=== PATIENT | female | born 1990 | race Caucasian/White ===

== ENCOUNTER 2018-06-22 11:30 | Outpatient (CLI) | payer BC ==
[2018-06-22 13:29] LABS: Basophils % (A) 0 %; Eosinophils % (A) 1 %; HCT 33.1 % (34.0-46.0); HGB 10.9 gm/dL (11.4-16.0); Lymphocytes # (A) 1.4 k/uL (1.0-4.8); Lymphocytes % (A) 16 %; MCH 29.2 pg (25.0-35.0); MCHC 32.9 g/dL (31.0-37.0); MCV 88.8 fL (80.0-100.0); Mean Platelet Volume 7.3; Monocytes # (A) 0.5 k/uL (0-1.0); Monocytes % (A) 5 %; Neutrophils # (A) 6.7 k/uL (1.3-7.7); Neutrophils % (A) 77 %; Platelet Count 223 k/uL (150-450); RBC 3.73 m/uL (3.80-5.40); WBC 8.7 k/uL (3.8-10.6)
[2018-06-22 13:31] LABS: Appearance,Urine Clear (Clear); Bilirubin,Urine Negative (Negative); Blood,Urine Negative (Negative); Color,Urine Light Yellow; Glucose,Urine (UA) Negative (Negative); Ketones,Urine Negative (Negative); Leukocyte Esterase,Urine Negative (Negative); Nitrite,Urine Negative (Negative); PH, Urine 6.5 (5.0-8.0); Protein,Urine Negative (Negative); Specific Gravity,Urine 1.006 (1.001-1.035); Urobilinogen,Urine <2.0 mg/dL (<2.0)
[2018-06-22 13:52] LABS: ALT 28 U/L (9-52); AST 25 U/L (14-36); Blood Urea Nitrogen 7 mg/dL (7-17); LDH 655 U/L (313-618); Uric Acid 4.8 mg/dL (3.7-7.4)
[2018-06-22 16:51] VITALS: BP 130/83; PULSE 88; RESP 18; TEMP 98.4
--- NOTE | 2018-06-23 16:14 | P.MSEPDOC ---
Presenting Problems - Arrival Data Date of Arrival on Unit: 06/22/18 Time of Arrival on Unit: 11:30 Mode of Transport: Ambulatory - Complaint OB-Reason for Admission/Chief Complaint: Other Comment: r/o pih Medical History - Information : 2 Para: 1 Term: 1 : 0 Abortions: Spontaneous or Elective: 0 Number of Living Children: 1 - Gestational Age Gestational Age by LESLYE (wks/days): 37 Weeks and 2 Days Review of Systems - Review of Systems Constitutional: No problems Breast: No problems ENT: No problems Cardiovascular: No problems Respiratory: No problems Gastrointestinal: No problems Genitourinary: No problems Musculoskeletal: No problems Neurological: No problems Skin: No problems Vital Signs - Temperature Temperature: 98.4 F Temperature Source: Oral - Pulse Right Brachial Pulse Rate: 88 Pulse Assessment Method: Automatic Cuff - Respirations Respiratory Rate: 18 Oxygen Delivery Method: Room Air - Blood Pressure Right Arm Blood Pressure: 130/83 Blood Pressure Mean: 98 Blood Pressure Source: Automatic Cuff Medical Screen Scoring (Pre) - Cervical Exam Dilation: Exam Deferred Effacement: Exam Deferred Membranes: Intact - Uterine Contractions Frequency: N/A Duration: N/A Intensity: N/A - Maternal Vital Signs Maternal Temperature: N/A Signs of Preeclampsia: N/A Maternal Respirations: N/A - Pain Assessment Pain Scale Used: Numeric (1 - 10) Pain Intensity: 0 - Maternal Trauma Maternal Trauma: N/A - Assessment Baseline FHR: 135 Heart Rate - NICHD Category: Category I (Normal) = 0 NST: Reactive Position: N/A Station: N/A - Total Score Total Score (Pre): 0 - Level of Risk Level of Risk: Low (0-5) Physician Notification (Pre) - Physician Notified Spoke With: george New Order Received: Yes - Notification Comment Comment: if labs wnl may discharge. Medical Screen Scoring (Post) - Cervical Exam Dilation: Exam Deferred Effacement: Exam Deferred - Uterine Contractions Frequency: N/A Duration: N/A Intensity: N/A - Maternal Vital Signs Maternal Temperature: N/A Maternal Blood Pressure: N/A Signs of Preeclampsia: N/A Maternal Respirations: N/A - Pain Assessment Pain Scale Used: Numeric (1 - 10) Pain Intensity: 0 - Maternal Trauma Maternal Trauma: N/A - Assessment Heart Rate: 135 Heart Rate - NICHD Category: Category I (Normal) = 0 NST: Reactive Position: N/A Station: N/A - Total Score Total Score (Post): 0 - Post Treatment Level of Risk Post Treatment Level of Risk: Low (0-5) Physician Notification (Post) - Physician Notified Physician Notified Date: 06/22/18 Physician Notified Time: 12:40 Spoke With: george Saenz Order Received: Yes - Notification Comment Comment: discharge home. to keep next sched appt. Disposition - Disposition OB Disposition: Discharge to home Discharge Date: 06/22/18 Discharge Time: 14:10 I agree with the RN Medical Screening Exam: Yes Risk & Benefit of care provided described in d/c instruction: Yes Diagnosis: GESTATIONAL HTN W/O SIGNIFICANT PROTEINURIA, THIRD TRIMESTER
== END 2018-06-22 14:10 | disposition home or self-care (01) ==
LOC: FBPOP 11:30
PROVIDERS: ATTEND Obstetrics & Gynecology
DX: O13.3 Gestational [pregnancy-induced] hypertension without significant proteinuria, third trimester (principal); Z3A.37 37 weeks gestation of pregnancy
CPT/HCPCS: 59025; 81003; 82565; 83615; 84450; 84460; 84520; 84550; 85025; 99215

== ENCOUNTER 2018-06-26 00:15 | Observation (INO) | payer BC ==
[2018-06-26 01:12] LABS: Basophils % (A) 0 %; Eosinophils % (A) 0 %; HCT 32.3 % (34.0-46.0); HGB 10.7 gm/dL (11.4-16.0); Lymphocytes # (A) 1.1 k/uL (1.0-4.8); Lymphocytes % (A) 15 %; MCH 29.1 pg (25.0-35.0); MCHC 33.1 g/dL (31.0-37.0); MCV 87.8 fL (80.0-100.0); Mean Platelet Volume 7.2; Monocytes # (A) 0.4 k/uL (0-1.0); Monocytes % (A) 6 %; Neutrophils # (A) 5.5 k/uL (1.3-7.7); Neutrophils % (A) 76 %; Platelet Count 207 k/uL (150-450); RBC 3.68 m/uL (3.80-5.40); RDW 13.2 % (11.5-15.5); WBC 7.2 k/uL (3.8-10.6)
[2018-06-26 01:16] LABS: Appearance,Urine Clear (Clear); Bilirubin,Urine Negative (Negative); Blood,Urine Negative (Negative); Color,Urine Colorless; Glucose,Urine (UA) Negative (Negative); Ketones,Urine Negative (Negative); Leukocyte Esterase,Urine Negative (Negative); Nitrite,Urine Negative (Negative); PH, Urine 6.5 (5.0-8.0); Protein,Urine Negative (Negative); Specific Gravity,Urine 1.002 (1.001-1.035); Urobilinogen,Urine <2.0 mg/dL (<2.0)
[2018-06-26 01:26] LABS: ALT 30 U/L (9-52); AST 28 U/L (14-36); Blood Urea Nitrogen 9 mg/dL (7-17); LDH 415 U/L (313-618); Uric Acid 6.3 mg/dL (3.7-7.4)
[2018-06-26] MEDS ORDERED: ONDANSETRON 4 MG/2 ML VIAL IVP STA (01:40)
[2018-06-26 02:02] VITALS: BMI 31.6
[2018-06-26 02:25] VITALS: BP 131/83; PULSE 110; RESP 18; TEMP 96.7
--- NOTE | 2018-06-26 06:26 | P.HPOB ---
History of Present Illness H&P Date: 06/26/18 Chief Complaint: Diarrhea and epigastric pain This patient is a pleasant 27-year-old 2 para 1 female estimated date of confinement 07/12/2018 estimated gestational age 37-5/7 who was admitted last evening by Dr. Tavares for complaints of epigastric pain and some diarrhea. Patient most recently was in the office on Tuesday and had a diastolic blood pressure that was elevated to 86 and therefore I sent her to labor and delivery for preeclampsia evaluation. Blood pressures here were completely normal and all lab work was normal as well. Patient states that she began having some upper abdominal pain and some diarrhea yesterday contacted Dr. Tavares was admitted to the hospital for evaluation. Patient's blood pressures remain normal. Lab work remains normal. This morning patient is still having some upper abdominal pain and says she "just does not feel right". has been complicated by a isolated EIF and she was sent to maternal- medicine and had a negative evaluation. also's had a previous section secondary to breech presentation and has requested . Review of Systems Constitutional: Denies chills, Denies fever Gastrointestinal: Reports abdominal pain, Reports diarrhea Genitourinary: Reports Menstruation: Reports amenorrhea Past Medical History Past Medical History: No Reported History History of Any Multi-Drug Resistant Organisms: None Reported Past Surgical History: Section Past Anesthesia/Blood Transfusion Reactions: No Reported Reaction Past Psychological History: Bipolar, Depression Additional Psychological History / Comment(s): 0 meds for 10 yrs Smoking Status: Former smoker Past Alcohol Use History: None Reported Past Drug Use History: None Reported - Past Family History Mother Family Medical History: Hypertension Additional Family Medical History / Comment(s): hx of preeclamsia for mom Medications and Allergies Home Medications Medication Instructions Recorded Confirmed Type Pnv,Calcium 72/Iron/Folic Acid 1 each PO DAILY 06/22/18 06/26/18 History [ Plus Tablet] Allergies Allergy/AdvReac Type Severity Reaction Status Date / Time No Known Allergies Allergy Verified 06/26/18 00:33 Exam Vital Signs Temp Pulse Resp BP Pulse Ox 06/26/18 02:19 96.7 F L 110 H 18 131/83 97 Intake and Output 06/25/18 06/25/18 06/26/18 14:59 22:59 06:59 Other: Weight 83.688 kg - OBG Physical Exam Abdomen: bowel sounds normal, no diffuse tenderness, no bruit present, no guarding noted, no hepatomegaly, no splenomegaly, no mass Uterus: enlarged Results Result Diagrams: 06/26/18 00:55 06/26/18 00:55 Abnormal Lab Results - Last 24 Hours (Table) 06/26/18 06/26/18 06/26/18 Range/Units 00:55 00:55 00:55 RBC 3.68 L (3.80-5.40) m/uL Hgb 10.7 L (11.4-16.0) gm/dL Hct 32.3 L (34.0-46.0) % Creatinine 0.48 L (0.52-1.04) mg/dL U Random Total Protein 17 H (<12) mg/dL Assessment and Plan Assessment: This is a pleasant 27-year-old 2 para 1 female 37-4/7 weeks gestation who is admitted to labor and delivery for evaluation of upper abdominal pain. Patient also had concerns about hypertension, however all of her blood pressures have remained normal and all of her blood work has remained normal. Due to the patient's upper abdominal discomfort I'm going to get a complete obstetrical ultrasound and a drop her abdominal ultrasound. At this point it appears that her discomfort is related to the diarrhea perhaps a gastrointestinal processes. heart tones are reactive she is not in labor therefore there is no evidence of compromise at this time. Plan we'll continue hospitalization and observation. (1) Abdominal pain affecting Current Visit: Yes Status: Acute Code(s): O26.899 - OTH RELATED CONDITIONS, UNSPECIFIED TRIMESTER; R10.9 - UNSPECIFIED ABDOMINAL PAIN SNOMED Code(s): 083877522
[2018-06-26] MEDS ORDERED: ACETAMINOPHEN TAB 500 MG TAB PO STA (07:03)
--- NOTE | 2018-06-26 09:30 | US ---
EXAMINATION TYPE: US abdomen limited DATE OF EXAM: 06/26/2018 COMPARISON: NONE CLINICAL HISTORY: Epigastric pain. patient, 37 weeks, RUQ pain with 1 episode of vomiting EXAM MEASUREMENTS: Liver Length: 16.9 cm Gallbladder Wall: 0.2 cm CBD: 0.5 cm Right Kidney: 10.3 x 5.7 x 6.1 cm *Limited views due to enlarged UT displacing organs up within ribcage Pancreas: wnl Liver: wnl Gallbladder: wnl Evidence for sonographic [place]'s sign: no CBD: wnl Right Kidney: wnl IMPRESSION: No acute process
--- NOTE | 2018-06-26 09:45 | US ---
EXAMINATION TYPE: US OB >= 14 wk fetus DATE OF EXAM: 06/26/2018 COMPARISON: None CLINICAL HISTORY: Epigastric painRUQ pain TECHNIQUE: OBTA GESTATIONAL AGE / DATING Physician Established: (37 weeks/5 days) EDC: 07/12/2018 Dates by LMP: LMP unknown Dates by First Scan: No previous this is first scan Dates by Current Scan: (37 weeks/3 days) EDC: 07/14/2018 SURVEY IUP: Single PLACENTA: Anterior PREVIA: No Previa NOAH: 16.4 cm Normal CERVICAL LENGTH (transabdominal: norm > 3.0cm): 3.4 cm BIOMETRY PRESENTATION: Vertex LIE: Longitudinal BPD: 9.9 cm 40 weeks / 6 days HC: 34.1 cm 39 weeks / 2 days AC: 34.5 cm 38 weeks / 3 days FL: 6.9 cm 35 weeks / 3 days ESTIMATED WEIGHT IN GRAMS: 3405 grams ESTIMATED WEIGHT IN LBS/OZ: 7 lbs. 8 oz. WEIGHT PERCENTAGE BASED ON ESTABLISHED DATES: 71.3% HC/AC: 0.9 Normal FL/AC: 20.0 Normal HEART RATE: 117 bpm RHYTHM: Normal anatomy assessment was not requested and not performed. IMPRESSION: of 37 weeks 3 days and an EDC of 07/14/2018.
--- NOTE | 2018-06-29 06:25 | P.DS ---
Providers Date of admission: 06/26/18 01:51 Expected date of discharge: 06/26/18 Attending physician: Jeromy Tavares Primary care physician: Stated None - Discharge Diagnosis(es) (1) Abdominal pain affecting Status: Acute Hospital Course: Please see dictated H&P in this patient's admission. Brief summary this is a pleasant 27-year-old patient is admitted with some upper abdominal pain and diarrhea at term . Patient's evaluation was completely negative and later today feeling well she was felt be stable for discharge home follow up in the office in a couple days. Patient Condition at Discharge: Good Plan - Discharge Summary New Discharge Prescriptions: No Action Pnv,Calcium 72/Iron/Folic Acid [ Plus Tablet] 1 each PO DAILY Discharge Medication List Pnv,Calcium 72/Iron/Folic Acid [ Plus Tablet] 1 each PO DAILY 06/22/18 [ History] Follow up Appointment(s)/Referral(s): Matias Selby MD [STAFF PHYSICIAN] - 06/29/18 Discharge Disposition: HOME SELF-CARE
== END 2018-06-26 11:00 | disposition home or self-care (01) ==
LOC: FBPOP 00:15 → 4FBP 01:51
PROVIDERS: ADMIT Obstetrics & Gynecology; ATTEND Obstetrics & Gynecology
DX: O26.893 Other specified pregnancy related conditions, third trimester (principal); R10.13 Epigastric pain; Z3A.37 37 weeks gestation of pregnancy; R10.11 Right upper quadrant pain; R19.7 Diarrhea, unspecified; Z87.891 Personal history of nicotine dependence; Z82.49 Family history of ischemic heart disease and other diseases of the circulatory system; O34.219 Maternal care for unspecified type scar from previous cesarean delivery
CPT/HCPCS: 59025; 99215; 82570; 84156; 82565; 83615; 84450; 84460; 84520; 84550; 85025; 81003; 76705; 76805; G0378

== ENCOUNTER 2018-07-10 05:50 | Inpatient (IN) | payer BC ==
[2018-07-10] MEDS ORDERED: LIDOCAINE 0.5% (PF) 5 MG/ML (50 ML SDV) SQ PRN (05:58)
[2018-07-10] MEDS ORDERED: OXYTOCIN 10 UNIT/ML 1 ML VIAL IM PRN (05:58)
[2018-07-10] MEDS ORDERED: TERBUTALINE 1 MG/ML VIAL SQ PRN (05:58)
[2018-07-10] MEDS ORDERED: AMPICILLIN 2,000 MG in SODIUM CHLORIDE 0.9% 100 ML IVPB STA (05:58)
[2018-07-10] MEDS ORDERED: CARBOPROST TROMETHAMINE 250 MCG/ML 1 ML AMP IM PRN (05:58)
[2018-07-10] MEDS ORDERED: OXYTOCIN 30 UNITS/500 ML NS 30 UNIT in SALINE 1 500ML.BAG IV SCH (05:58)
[2018-07-10] MEDS ORDERED: METHYLERGONOVINE 0.2 MG/ML 1 ML AMP IM PRN (05:58)
[2018-07-10 06:10] VITALS: BMI 31.4
[2018-07-10] MEDS: LACTATED RINGERS 1,000 ML IV SCH ×2 (06:24→21:34)
--- NOTE | 2018-07-10 06:26 | P.HPOB ---
History of Present Illness H&P Date: 07/10/18 Chief Complaint: Requested induction of labor () This patient is a pleasant 27-year-old 2 para 1 female estimated date of confinement 07/12/2018 estimated gestational age 39-5/7 weeks who presents to labor and delivery for requested induction of labor. Patient's had a previous section for breech. That time apparently she came in completely dilated and did have a section due to breech presentation. Patient has requested a trial of this and I feel this is appropriate. Patient's care is complicated by an 8 which was evaluated by maternal medicine in negative. Patient was also briefly hospitalized due to concern for elevated blood pressure although she has never had any elevated blood pressures after prolonged observation. Patient is uncomfortable at this time is requesting induction of labor. Review of Systems Gastrointestinal: Reports heartburn Genitourinary: Reports Menstruation: Reports amenorrhea Past Medical History Past Medical History: No Reported History History of Any Multi-Drug Resistant Organisms: None Reported Past Surgical History: Section Past Anesthesia/Blood Transfusion Reactions: No Reported Reaction Past Psychological History: Bipolar, Depression Additional Psychological History / Comment(s): 0 meds for 10 yrs Smoking Status: Former smoker Past Alcohol Use History: None Reported Past Drug Use History: None Reported - Past Family History Mother Family Medical History: Hypertension Additional Family Medical History / Comment(s): hx of preeclamsia for mom Medications and Allergies Home Medications Medication Instructions Recorded Confirmed Type Pnv,Calcium 72/Iron/Folic Acid 1 each PO DAILY 06/22/18 07/10/18 History [ Plus Tablet] Allergies Allergy/AdvReac Type Severity Reaction Status Date / Time No Known Allergies Allergy Verified 06/26/18 00:33 Exam Vital Signs Temp Pulse Resp BP Pulse Ox 07/10/18 06:05 97.3 F L 111 H 16 133/76 98 Intake and Output 07/09/18 07/09/18 07/10/18 14:59 22:59 06:59 Other: Weight 83.007 kg - OBG Physical Exam Abdomen: bowel sounds normal, no diffuse tenderness, no bruit present, no guarding noted, no hepatomegaly, no splenomegaly, no mass Vulva: both: normal Vagina: normal moisture, no discharge Cervix: no lesion (Cervix is 2-3 cm 50% effaced -2 station.), no discharge Uterus: enlarged (Fundal height 38 cm.) Results blood work shows she is A positive, rubella immune, RPR nonreactive, hepatitis B negative, group B strep was negative (however she has a history of positive group B strep with her previous ), Glucola was normal, level III ultrasound was normal, quad screen was negative. Assessment and Plan Assessment: This is a pleasant 27-year-old 2 para 1 female 39-5/7 weeks gestation who is presenting for requested trial of vaginal after section. Patient is requesting induction secondary to discomfort. Patient and I discussed in detail the benefits and risk of . Patient also has a history of positive strep with her previous . Plan is induction of labor and anticipate vaginal delivery. We'll also give her IV antibiotics prophylactically. (1) 39 weeks gestation of Current Visit: Yes Status: Acute Code(s): Z3A.39 - 39 WEEKS GESTATION OF SNOMED Code(s): 09048091 (2) Previous delivery affecting Current Visit: Yes Status: Acute Code(s): O34.219 - MATERNAL CARE FOR UNSP TYPE SCAR FROM PREVIOUS DEL SNOMED Code(s): 438444113
[2018-07-10 06:39] LABS: Basophils % (A) 0 %; Eosinophils # (A) 0.1 k/uL (0-0.7); Eosinophils % (A) 1 %; HCT 33.4 % (34.0-46.0); HGB 10.8 gm/dL (11.4-16.0); Lymphocytes % (A) 25 %; MCH 28.3 pg (25.0-35.0); MCHC 32.5 g/dL (31.0-37.0); MCV 87.2 fL (80.0-100.0); Mean Platelet Volume 7.3; Monocytes # (A) 0.6 k/uL (0-1.0); Monocytes % (A) 7 %; Neutrophils # (A) 5.4 k/uL (1.3-7.7); Neutrophils % (A) 66 %; Platelet Count 252 k/uL (150-450); RBC 3.83 m/uL (3.80-5.40); RDW 13.3 % (11.5-15.5); WBC 8.2 k/uL (3.8-10.6)
[2018-07-10] MEDS: AMPICILLIN 1,000 MG in SODIUM CHLORIDE 0.9% 50 ML IVPB SCH ×2 (10:39→21:34)
[2018-07-10] MEDS ORDERED: BUTORPHANOL 1 MG/ML 1 ML VIAL IV PRN (10:45)
[2018-07-10] MEDS ORDERED: ROPIVACAINE 5MG/ML 20ML VIAL ONE (12:16)
[2018-07-10] MEDS ORDERED: SODIUM CHLORIDE 0.9% 100 ML BAG ONE (12:16)
[2018-07-10] MEDS ORDERED: fentaNYL (PF) 50 MCG/ML 5 ML AMP ONE (12:16)
[2018-07-10] MEDS ORDERED: ROPIVACAINE 100 MG, fentaNYL (PF) 200 MCG in SODIUM CHLORIDE 0.9% 76 ML EPIDURAL ONE (12:36)
[2018-07-10] MEDS ORDERED: BISACODYL 10 MG SUPP RECTAL PRN (14:15)
[2018-07-10] MEDS ORDERED: WITCH HAZEL 1 EACH MED..PAD TOPICAL PRN (14:15)
[2018-07-10] MEDS ORDERED: SIMETHICONE 80 MG CHEWABLE PO PRN (14:15)
[2018-07-10] MEDS ORDERED: diphenhydrAMINE 25 MG CAP PO PRN (14:15)
[2018-07-10] MEDS ORDERED: BENZOCAINE/MENTHOL SPRAY 1 GM/SPRAY AEROSOL TOPICAL PRN (14:15)
[2018-07-10] MEDS ORDERED: HYDROCORTISONE 2.5% RECTAL CREAM 30 GM TUBE RECTAL PRN (14:15)
[2018-07-10] MEDS ORDERED: LANOLIN CREAM 5 GM TUBE TOPICAL PRN (14:15)
[2018-07-10] MEDS ORDERED: diphenhydrAMINE 50 MG/ML 1 ML VIAL IVP PRN (14:15)
[2018-07-10] MEDS ORDERED: ZOLPIDEM 5 MG TAB PO PRN (14:15)
[2018-07-10] MEDS ORDERED: OXYTOCIN 20 UNITS/1000 ML NS 1,000 ML IV SCH (14:15)
[2018-07-10] MEDS ORDERED: ACETAMINOPHEN TAB 325 MG TAB PO PRN (14:15)
[2018-07-10] MEDS: IBUPROFEN 600 MG TAB PO PRN ×2 (14:52→22:36)
--- NOTE | 2018-07-10 17:12 | P.PROBDLV ---
Vaginal Delivery Note - . Vaginal Delivery Note: normal vaginal delivery () viable male Apgars 8 and 9 at 1345 hrs. Please see dictated H&P for intimate details of this patient's admission. Brief summary this is a pleasant 27-year-old 2 para 1 female 39-5/7 weeks gestation who is admitted to labor and delivery for requested induction of labor and trial of . Patient is artificial rupture membranes for clear fluid. Labor is induced with Pitocin per protocol. A she is given antibiotics for history of positive strep with previous . Labor progresses and she gets an epidural for pain control. Patient then quickly gets to complete pushes the head to the perineum. Posterior perineum was then supported we have controlled delivery of infant's head over the intact perineum. Mouth and nares are bulb suctioned. There is no evidence of a nuchal cord. With gentle downward traction we have delivery the anterior and posterior shoulder and rest this 's body. This is a vigorous viable male Apgars are 8 and 9 delivery time is 1345 hrs. This is laid on the mother's abdomen and after the umbilical cord is done pulsating is doubly clamped and then cut. It appears to be trivascular. Placenta spontaneously delivered intact. Estimated blood loss is 150 mL. Inspection of the perineum shows a second- degree laceration and bilateral periurethral lacerations. Second-degree laceration is somewhat jagged but it is repaired with the usual fashion using a 3-0 Vicryl in excellent reapproximation is noted. The right periurethral laceration requires 2 sutures in good reapproximation is noted as well. All counts are correct 3. There are no complications. and mother are stable in delivery room.
[2018-07-10] MEDS: SENNOSIDES-DOCUSATE SODIUM 1 EACH TAB PO SCH (21:27)
--- NOTE | 2018-07-11 05:53 | P.PNOBGVD ---
Subjective - Subjective Patient reports: Reports appetite normal, Reports voiding normally, Reports pain well controlled, Reports ambulating normally : doing well Objective - Latest Vital Signs Latest vital signs: Vital Signs Temp Pulse Resp BP Pulse Ox 07/11/18 00:00 98 F 85 15 111/60 07/10/18 20:00 98 F 84 15 111/75 07/10/18 16:18 68 17 125/72 07/10/18 15:45 98.4 F 69 17 116/68 07/10/18 15:15 80 16 112/67 07/10/18 15:00 67 17 116/67 07/10/18 14:45 75 16 113/63 07/10/18 14:30 83 17 111/53 07/10/18 14:15 98.0 F 103 H 17 117/57 07/10/18 06:05 97.3 F L 111 H 16 133/76 98 Intake and Output 07/10/18 07/10/18 07/11/18 14:59 22:59 06:59 Other: # Voids 1 - Exam Lungs: bilateral: normal Chest: Normal S1, Normal S2 Extremities: Present: normal Abdomen: Present: normal appearance, soft Uterus: Present: normal, firm - Labs Labs: Abnormal Lab Results - Last 24 Hours (Table) 07/10/18 Range/Units 06:07 Hgb 10.8 L (11.4-16.0) gm/dL Hct 33.4 L (34.0-46.0) % Assessment and Plan Assessment: Post day #1. Patient is resting without complaints and wishes to go home. Vital signs are stable and she is afebrile. Uterus is firm nontender and she is having normal lochia. My impression this is a normal course. Plan is to continue routine care discharge home later today. (1) 39 weeks gestation of Current Visit: Yes Status: Acute Code(s): Z3A.39 - 39 WEEKS GESTATION OF SNOMED Code(s): 03507437 (2) Previous delivery affecting Current Visit: Yes Status: Acute Code(s): O34.219 - MATERNAL CARE FOR UNSP TYPE SCAR FROM PREVIOUS DEL SNOMED Code(s): 401356522
--- NOTE | 2018-07-11 05:56 | P.DS ---
Providers Date of admission: 07/10/18 05:50 Expected date of discharge: 07/11/18 Attending physician: Matias Selby Primary care physician: Stated None - Discharge Diagnosis(es) (1) 39 weeks gestation of Current Visit: Yes Status: Acute (2) Previous delivery affecting Current Visit: Yes Status: Acute Hospital Course: Please see dictated H&P for intimate details of this patient's admission. Brief summary is a pleasant 27-year-old 2 para 1 female 39-5/7 weeks gestation admitted to labor and delivery for requested vaginal after section. Patient is admitted has uncomplicated induction of labor goes on have a vaginal delivery viable male infant. Please see dictated delivery note. day #1 patient's felt to be stable for discharge home follow up with me in 6 weeks. Procedures: Vaginal after section Patient Condition at Discharge: Good Plan - Discharge Summary New Discharge Prescriptions: New Ibuprofen [Motrin] 600 mg PO Q6HR PRN #40 tab PRN Reason: Mild Pain Or Fever >= 100.5 No Action Pnv,Calcium 72/Iron/Folic Acid [ Plus Tablet] 1 each PO DAILY Discharge Medication List Pnv,Calcium 72/Iron/Folic Acid [ Plus Tablet] 1 each PO DAILY 06/22/18 [ History] Ibuprofen [Motrin] 600 mg PO Q6HR PRN #40 tab 07/11/18 [Rx] Follow up Appointment(s)/Referral(s): Matias Selby MD [STAFF PHYSICIAN] - 08/22/18 10:15 am Patient Instructions/Handouts: Vaginal Delivery (DC) Activity/Diet/Wound Care/Special Instructions: No intercourse or anything per vagina for 6 weeks. Please call if any fever, chills, excessive vaginal bleeding, and/or abdominal pain. Discharge Disposition: HOME SELF-CARE
[2018-07-11] MEDS: IBUPROFEN 600 MG TAB PO PRN (07:52)
[2018-07-11] MEDS: SENNOSIDES-DOCUSATE SODIUM 1 EACH TAB PO SCH (07:53)
[2018-07-11 08:00] VITALS: BP 120/68; PULSE 86; RESP 14; TEMP 97
== END 2018-07-11 14:40 | disposition home or self-care (01) | DRG 807 ==
LOC: 4FBP 05:50
PROVIDERS: ADMIT Obstetrics & Gynecology; ATTEND Obstetrics & Gynecology
PROC: 10E0XZZ Delivery of Products of Conception, External Approach (ICD-10-PCS; principal; 2018-07-10)
PROC: 0KQM0ZZ Repair Perineum Muscle, Open Approach (ICD-10-PCS; 2018-07-10)
PROC: 0UQMXZZ Repair Vulva, External Approach (ICD-10-PCS; 2018-07-10)
PROC: 3E033VJ Introduction of Other Hormone into Peripheral Vein, Percutaneous Approach (ICD-10-PCS; 2018-07-10)
PROC: 10907ZC Drainage of Amniotic Fluid, Therapeutic from Products of Conception, Via Natural or Artificial Opening (ICD-10-PCS; 2018-07-10)
PROC: 00HU33Z Insertion of Infusion Device into Spinal Canal, Percutaneous Approach (ICD-10-PCS; 2018-07-10)
PROC: 3E0R3BZ Introduction of Anesthetic Agent into Spinal Canal, Percutaneous Approach (ICD-10-PCS; 2018-07-10)
DX: O34.211 Maternal care for low transverse scar from previous cesarean delivery (principal); Z37.0 Single live birth; O70.1 Second degree perineal laceration during delivery; O71.82 Other specified trauma to perineum and vulva; Z3A.39 39 weeks gestation of pregnancy; Z79.899 Other long term (current) drug therapy; Z87.891 Personal history of nicotine dependence; Z86.59 Personal history of other mental and behavioral disorders; Z82.49 Family history of ischemic heart disease and other diseases of the circulatory system
CPT/HCPCS: 85025; 86850; 86900; 86901

== ENCOUNTER 2021-03-06 09:47 | Emergency (ER) | payer BC ==
[2021-03-06] MEDS ORDERED: KETOROLAC 15 MG/ML 1 ML VIAL IVP STA (11:30)
[2021-03-06 11:51] LABS: Basophils % (A) 1 %; Eosinophils # (A) 0.1 k/uL (0-0.7); Eosinophils % (A) 2 %; HCT 34.8 % (34.0-46.0); HGB 10.9 gm/dL (11.4-16.0); Lymphocytes % (A) 30 %; MCHC 31.5 g/dL (31.0-37.0); MCV 85.8 fL (80.0-100.0); Mean Platelet Volume 6.9; Monocytes # (A) 0.4 k/uL (0-1.0); Monocytes % (A) 6 %; Neutrophils # (A) 3.9 k/uL (1.3-7.7); Neutrophils % (A) 60 %; Platelet Count 329 k/uL (150-450); RBC 4.05 m/uL (3.80-5.40); RDW 15.2 % (11.5-15.5); WBC 6.6 k/uL (3.8-10.6)
[2021-03-06 12:01] LABS: ALT 23 U/L (4-34); AST 30 U/L (14-36); African American GFR (CKD) >90 (>60 ml/min/1.73 sqM); Albumin 3.7 g/dL (3.5-5.0); Alkaline Phosphatase 55 U/L (38-126); Anion Gap 7 mmol/L; Blood Urea Nitrogen 10 mg/dL (7-17); Calcium 8.9 mg/dL (8.4-10.2); Carbon Dioxide 23 mmol/L (22-30); Chloride 107 mmol/L (98-107); Glucose 91 mg/dL (74-99); Non-African American GFR(CKD) >90 (>60 ml/min/1.73 sqM); Potassium 4.1 mmol/L (3.5-5.1); Sodium 137 mmol/L (137-145); Total Bilirubin 0.3 mg/dL (0.2-1.3); Total Protein 6.3 g/dL (6.3-8.2)
[2021-03-06 12:11] VITALS: RESP 18
--- NOTE | 2021-03-06 12:13 | XR ---
EXAMINATION TYPE: XR chest 2V DATE OF EXAM: 03/06/2021 COMPARISON: None HISTORY: 30-year-old female with chest pain TECHNIQUE: PA and lateral views FINDINGS: The cardiomediastinal silhouette, aorta, and pulmonary vasculature are within normal limits. Right-si ded nipple shadow. Lungs and pleural spaces are clear. IMPRESSION: No acute cardiopulmonary process.
--- NOTE | 2021-03-06 12:24 | ED ---
Chest Pain HPI - General Chief Complaint: Chest Pain Stated Complaint: Chest Pain Time Seen by Provider: 03/06/21 11:08 Source: patient, RN notes reviewed Mode of arrival: ambulatory Limitations: no limitations - History of Present Illness Initial Comments: Patient is a 30-year-old female presenting to the emergency Department with complaints of chest pain when she woke up this morning. She states she woke up and turned over, then felt a sharp pain in the middle of her chest. She states when she lays flat on her back it also hurts, hurts to the touch. When she stretches her arms out to the sides and also plays in the area and makes it hurt. She denies any cough, no shortness of breath, no abdominal pain, no nausea or vomiting. She denies any fevers or chills. She states her daughter was recently tested positive for RSV. She's had a little bit of a stuffy nose over the past 1-2 days but no other symptoms. She denies any heart disease in the past, no blood clots in the past. No recent travel. She denies being secondary to IUD. Patient has no further complaints at this time. Upon arrival to the ER, her vitals are stable. - Related Data Home Medications Medication Instructions Recorded Confirmed No Known Home Medications 03/06/21 03/06/21 Allergies Allergy/AdvReac Type Severity Reaction Status Date / Time No Known Allergies Allergy Verified 03/06/21 11:53 Review of Systems ROS Statement: Those systems with pertinent positive or pertinent negative responses have been documented in the HPI. ROS Other: All systems not noted in ROS Statement are negative. EKG Findings - EKG Comments: EKG Findings:: Normal sinus rhythm, normal ECG, no signs of acute process. Ventricular rate 86, NC interval 140, QT 388. Past Medical History Past Medical History: No Reported History History of Any Multi-Drug Resistant Organisms: None Reported Past Surgical History: Section Past Anesthesia/Blood Transfusion Reactions: No Reported Reaction Past Psychological History: Bipolar, Depression Smoking Status: Current every day smoker Past Alcohol Use History: Occasional Past Drug Use History: None Reported - Past Family History Mother Family Medical History: Hypertension Additional Family Medical History / Comment(s): hx of preeclamsia for mom General Exam - General Exam Comments Initial Comments: GENERAL: Patient is well-developed and well-nourished. Patient is nontoxic and in no acute distress. HEAD: Atraumatic, normocephalic. EYES: Pupils equal round and reactive to light, extraocular movements intact, sclera anicteric, conjunctiva are normal. Eyelids were unremarkable. ENT: Nares patent, oropharynx clear without exudates. Moist mucous membranes. NECK: Normal range of motion, supple without lymphadenopathy or JVD. LUNGS: Unlabored respirations. Breath sounds clear to auscultation bilaterally and equal. No wheezes rales or rhonchi. HEART: Regular rate and rhythm without murmurs, rubs or gallops. ABDOMEN: Soft, nontender, normoactive bowel sounds. No guarding, no rebound. No masses appreciated. : Deferred MUSCULOSKELETAL: Normal extremities with adequate strength and normal range of motion, no pitting or edema. No clubbing or cyanosis. She does have pain with palpation of the sternum in costochondryles, pain with arm movement. NEUROLOGICAL: Patient is alert and oriented x 3. SKIN: Warm, Dry, normal turgor, no rashes or lesions noted. Limitations: no limitations Course Vital Signs 03/06/21 03/06/21 03/06/21 09:52 12:00 13:00 Temperature 99 F Pulse Rate 78 Respiratory 20 18 18 Rate Blood Pressure 130/85 O2 Sat by Pulse 100 Oximetry Chest Pain [facility] Patient is a 30-year-old female here with chest pain after she rolled over this morning. She admits pain with palpation, increases with arm movement, deep inhalation. No injuries or trauma. Her son recently tested positive for RSV, she has little bit of a stuffy nose. Rest of exam is unremarkable, vitals are stable. Chest x-ray shows no acute process. EKG is reading normal sinus rhythm. Labs are unremarkable including normal troponin, normal d-dimer. I discussed with patient that her symptoms are most likely related to costochondritis secondary to viral syndrome. Recommended continuing with anti- inflammatory such as Motrin or Aleve. She is agreeable to this. Return p arameters were discussed with her and she verbalized understanding. She will follow up with her PCP. Case discussed with Dr. Guerrero. Disposition Clinical Impression: Atypical chest pain, Costochondritis Disposition: HOME SELF-CARE Condition: Stable Instructions (If sedation given, give patient instructions): Costochondritis (ED) Additional Instructions: Please return to the Emergency Department if symptoms worsen or any other concerns. Recommend anti-inflammatory such as Motrin or Aleve for discomfort. May try heat and/or ice to the areas. Follow up with your primary care as needed. Is patient prescribed a controlled substance at d/c from ED?: No Referrals: None,Stated [Primary Care Provider] - 1-2 days Time of Disposition: 13:34
[2021-03-06 14:22] VITALS: BP 107/81; PULSE 72; TEMP 98.1
== END 2021-03-06 13:52 | disposition home or self-care (01) ==
LOC: EC 09:47
DX: M94.0 Chondrocostal junction syndrome [Tietze] (principal); F17.200 Nicotine dependence, unspecified, uncomplicated
CPT/HCPCS: 36415; 93005; 85379; 80053; 84484; 85025; 71046; 99284; 96374; J1885

== ENCOUNTER 2023-05-17 06:00 | Emergency (ER) | payer BC ==
[2023-05-17] MEDS ORDERED: ACETAMINOPHEN TAB 325 MG TAB PO STA (06:16)
[2023-05-17 06:17] VITALS: RESP 18
--- NOTE | 2023-05-17 07:26 | XR ---
EXAMINATION TYPE: XR knee complete RT DATE OF EXAM: 05/17/2023 COMPARISON: NONE HISTORY: 32 year-old female right knee pain after fall TECHNIQUE: 3 views FINDINGS: Prepatellar soft tissue swelling. Extensor mechanism appears intact. No significant joint e ffusion. No acute fracture, subluxation, or dislocation. IMPRESSION: Prepatellar soft tissue swelling could reflect contusion or prepatellar bursitis. No underlying acute osseous abnormality is seen.
--- NOTE | 2023-05-17 07:51 | ED ---
General Adult HPI - General Chief complaint: Fall Stated complaint: Fall, right knee injury Time Seen by Provider: 05/17/23 06:10 Source: patient, RN notes reviewed Mode of arrival: wheelchair Limitations: no limitations - History of Present Illness Initial comments: 32-year-old female with no significant past medical history presents to the emergency department with a chief complaint of right knee pain. Patient reports that she fell down stairs last night. She reports worsening pain and swelling to her right knee. She denies hitting her head, loss of consciousness, anticoagulant use. She denies numbness, tingling, weakness in extremities. Denies any pain distally to the knee. - Related Data Home Medications Medication Instructions Recorded Confirmed No Known Home Medications 03/06/21 03/06/21 Allergies Allergy/AdvReac Type Severity Reaction Status Date / Time No Known Allergies Allergy Verified 05/17/23 06:09 Review of Systems ROS Statement: Those systems with pertinent positive or pertinent negative responses have been documented in the HPI. ROS Other: All systems not noted in ROS Statement are negative. Past Medical History Past Medical History: No Reported History History of Any Multi-Drug Resistant Organisms: None Reported Past Surgical History: Section Past Anesthesia/Blood Transfusion Reactions: No Reported Reaction Past Psychological History: Bipolar, Depression Smoking Status: Current some day smoker Past Alcohol Use History: Occasional Past Drug Use History: None Reported - Past Family History Mother Family Medical History: Hypertension Additional Family Medical History / Comment(s): hx of preeclamsia for mom General Exam - General Exam Comments Initial Comments: General: Alert, in no acute distress Head: atraumatic normocephalic. Eyes PERRL, EOMI intact, mucous membranes moist Respiratory: Lungs clear to auscultation bilaterally Cardiovascular: Heart regular rhythm Abdominal: Soft without guarding or rebound Extremities: Normal inspection with full range of motion and normal capillary refill, right knee with generalized edema and tenderness. Limited range of motion secondary to pain. small abrasion without active bleeding. No Crepitus. No valgus or varus laxity. Homans sign negative. Neuroogic: alert and oriented 3, CN II-XII intact, able to ambulate with steady gait Skin: warm dry and intact with normal color Limitations: no limitations Course Vital Signs 05/17/23 06:05 Temperature 98 F Pulse Rate 90 Respiratory 18 Rate Blood Pressure 125/78 O2 Sat by Pulse 100 Oximetry - Reevaluation(s) Reevaluation #1: 05/17/23 08:11 Reevaluated and updated on results. She is agreeable with the plan for discharge home. Medical Decision Making - Medical Decision Making Was pt. sent in by a medical professional or institution ([facility], GLO[employer] RECRUITER, urgent care, hospital, or senior care...) When possible be specific @ -[No] Did you speak to anyone other than the patient for history (EMS, parent, family, police, friend...)? What history was obtained from this source @ -[No] Did you review nursing and triage notes (agree or disagree)? Why? @ -[I reviewed and agree with nursing and triage notes] Were old charts reviewed (outside hosp., previous admission, EMS record, old EKG, old radiological studies, urgent care reports/EKG's, senior care records)? Report findings @ -[No old charts were reviewed] Differential Diagnosis (chest pain, altered mental status, abdominal pain women, abdominal pain men, vaginal bleeding, weakness, fever, dyspnea, syncope, headache, dizziness, GI bleed, back pain, seizure, CVA, palpatations, mental health, musculoskeletal)? @ -[not applicable] EKG interpreted by me (3pts min.). @ -[As above] X-rays interpreted by me (1pt min.). @ X-ray of right knee does not reveal any evidence of dislocation or fracture. There is mild prepatellar edema CT interpreted by me (1pt min.). @ -[None done] U/S interpreted by me (1pt. min.). @ -[None done] What testing was considered but not performed or refused? (CT, X-rays, U/S, labs)? Why? @ -[None] What meds were considered but not given or refused? Why? @ -[None] Did you discuss the management of the patient with other professionals (professionals i.e. [facility], GLOBAL RECRUITER, lab, RT, psych nurse, aids social worker, bicycle designer, teacher, resident medical officer, window caser)? Give summary @ -[No] Was smoking cessation discussed for >3mins.? @ -[No] Was critical care preformed (if so, how long)? @ -[No] Were there social determinants of health that impacted care today? How? (Homelessness, low income, unemployed, alcoholism, drug addiction, transportation, low edu. Level, literacy, decrease access to med. care, assisted, rehab)? @ -[No] Was there de-escalation of care discussed even if they declined (Discuss DNR or withdrawal of care, Hospice)? DNR status @ -[No] What co-morbidities impacted this encounter? (DM, HTN, Smoking, COPD, CAD, Cancer, CVA, ARF, Chemo, Hep., AIDS, mental health diagnosis, sleep apnea, morbid obesity)? @ -[None] Was patient admitted / discharged? Hospital course, mention meds given and route, prescriptions, significant lab abnormalities, going to OR and other pertinent info. @ -Discharged. This is a 32-year-old female who presents the emergency department with knee pain. Patient has been physical exam performed. Physical exam reveals generalized swelling of the right knee. Limited range of motion secondary to pain. No valgus or varus laxity. No crepitus noted. Patient had x-rays which were negative. Rajinder wrap was applied and crutches were provided. Patient provided prescription for Motrin. Return precautions discussed at length. Recommend close follow-up with orthopedics in 1-2 days. Discharged in stable condition. Case is discussed with Dr. alejandre, ED attending who agrees with plan of care Undiagnosed new problem with uncertain prognosis? @ -[No] Drug Therapy requiring intensive monitoring for toxicity (Heparin, Nitro, Insulin, Cardizem)? @ -[No] Were any procedures done? @ -[No] Diagnosis/symptom? @ -Right Knee Pain Acute, or Chronic, or Acute on Chronic? @ -Acute Uncomplicated (without systemic symptoms) or Complicated (systemic symptoms)? @ -Uncomplicated Side effects of treatment? @ -[No] Exacerbation, Progression, or Severe Exacerbation? @ -[No] Poses a threat to life or bodily function? How? (Chest pain, [place], [place], pneumonia, PE, COPD, DKA, ARF, appy, cholecystitis, CVA, Diverticulitis, Homicidal, Suicidal, threat to staff... and all critical care pts) @ -Low likleihood Disposition Clinical Impression: Fall, Right knee pain Disposition: HOME SELF-CARE Condition: Stable Instructions (If sedation given, give patient instructions): Swollen Knee Joint (ED), Knee Pain (ED) Additional Instructions: Please elevate when able Please take Tylenol or Motrin for pain Please return to the nearest emergency department if worsening pain or swelling Is patient prescribed a controlled substance at d/c from ED?: No Referrals: Thee Underwood DO [Primary Care Provider] - 1-2 days Daniel Tavarez DO [Doctor of Osteopathic Medicine] - 1-2 days Time of Disposition: 07:50
[2023-05-17 08:45] VITALS: BP 126/78; PULSE 82; TEMP 97.9
== END 2023-05-17 08:21 | disposition home or self-care (01) ==
LOC: EC 06:00
DX: M25.561 Pain in right knee (principal); R60.0 Localized edema; F17.200 Nicotine dependence, unspecified, uncomplicated; W10.9XXA Fall (on) (from) unspecified stairs and steps, initial encounter
CPT/HCPCS: 99284

== ENCOUNTER 2024-06-24 23:54 | Inpatient (IN) | payer BC, OTHER ==
--- NOTE | 2024-06-25 00:29 | ED ---
General Adult HPI - General Chief complaint: Psychiatric Symptoms Stated complaint: Mental health Time Seen by Provider: 06/25/24 00:03 Source: patient, RN notes reviewed, old records reviewed Mode of arrival: ambulatory Limitations: no limitations - History of Present Illness Initial comments: 33-year-old female presenting with depression, suicidal thoughts. Patient states her symptoms have been persistent over the past several months but significantly worsened. She had prior suicide attempt. She denies current suicide attempt. Denies physical complaint. - Related Data Home Medications Medication Instructions Recorded Confirmed No Known Home Medications 03/06/21 03/06/21 Allergies Allergy/AdvReac Type Severity Reaction Status Date / Time No Known Allergies Allergy Verified 05/17/23 06:09 Review of Systems ROS Statement: Those systems with pertinent positive or pertinent negative responses have been documented in the HPI. ROS Other: All systems not noted in ROS Statement are negative. Past Medical History Past Medical History: No Reported History History of Any Multi-Drug Resistant Organisms: None Reported Date of last positivie culture/infection: 2023 MDRO Source:: unknown which one- knee Past Surgical History: Section Past Anesthesia/Blood Transfusion Reactions: No Reported Reaction Past Psychological History: Bipolar, Depression Smoking Status: Current some day smoker Past Alcohol Use History: Occasional Past Drug Use History: None Reported - Past Family History Mother Family Medical History: Hypertension Additional Family Medical History / Comment(s): hx of preeclamsia for mom General Exam Limitations: no limitations General appearance: alert, in no apparent distress Head exam: Present: atraumatic, normocephalic Eye exam: Present: normal appearance, PERRL ENT exam: Present: normal exam Neck exam: Present: normal inspection. Absent: tenderness, meningismus Respiratory exam: Present: normal lung sounds bilaterally. Absent: respiratory distress Cardiovascular Exam: Present: regular rate, normal rhythm GI/Abdominal exam: Absent: distended Neurological exam: Present: alert, oriented X3, CN II-XII intact. Absent: motor sensory deficit Psychiatric exam: Present: depressed, flat affect, suicidal ideation Skin exam: Present: warm, dry, intact Course Vital Signs 06/25/24 00:03 Temperature 97.6 F Pulse Rate 85 Respiratory 18 Rate Blood Pressure 123/85 O2 Sat by Pulse 98 Oximetry Medical Decision Making - Medical Decision Making Was pt. sent in by a medical professional or institution (, PA, TABLE ASSEMBLER METAL, urgent care, hospital, or care home...) When possible be specific @ -No Did you speak to anyone other than the patient for history (EMS, parent, family, police, friend...)? What history was obtained from this source @ -No Did you review nursing and triage notes (agree or disagree)? Why? @ -I reviewed and agree with nursing and triage notes Were old charts reviewed (outside hosp., previous admission, EMS record, old EKG, old radiological studies, urgent care reports/EKG's, care home records)? Report findings @ -No old charts were reviewed Differential Mental Health Depression, anxiety, bipolar, psychosis, schizophrenia, borderline personality, situational depression, adjustment disorder, behavioral disorder, brain tumor, malingering, substance abuse, encephalopathy, medication reaction, dementia, hypothyroidism, degenerative neurologic disorder, lupus.... This is not meant to be all-inclusive list EKG interpreted by me (3pts min.). @ -As above X-rays interpreted by me (1pt min.). @ -None done CT interpreted by me (1pt min.). @ -None done U/S interpreted by me (1pt. min.). @ -None done What testing was considered but not performed or refused? (CT, X-rays, U/S, labs)? Why? @ -None What meds were considered but not given or refused? Why? @ -None Did you discuss the management of the patient with other professionals (professionals i.e. , PA, TABLE ASSEMBLER METAL, lab, RT, psych nurse, bilingual social worker, deicer repairer electric, teacher, learning officer, child welfare caseworker)? Give summary @With EPS, will admit patient for further psychiatric care. Was smoking cessation discussed for >3mins.? @ -No Was critical care preformed (if so, how long)? @ -No Were there social determinants of health that impacted care today? How? (Homelessness, low income, unemployed, alcoholism, drug addiction, transportation, low edu. Level, literacy, decrease access to med. care, fdc, rehab)? @ -No Was there de-escalation of care discussed even if they declined (Discuss DNR or withdrawal of care, Hospice)? DNR status @ -No What co-morbidities impacted this encounter? (DM, HTN, Smoking, COPD, CAD, Cancer, CVA, ARF, Chemo, Hep., AIDS, mental health diagnosis, sleep apnea, morbid obesity)? @Depression Was patient admitted / discharged? Hospital course, mention meds given and route, prescriptions, significant lab abnormalities, going to OR and other pertinent info. @ -[Patient was medically cleared and evaluated by EPS and felt to require inpatient psychiatric care at this time. She will be admitted to this institution. Undiagnosed new problem with uncertain prognosis? @ -No Drug Therapy requiring intensive monitoring for toxicity (Heparin, Nitro, Insulin, Cardizem)? @ -No Were any procedures done? @ -No Diagnosis/symptom? @ -Depression, suicidal ideation Acute, or Chronic, or Acute on Chronic? @ -[Acute Uncomplicated (without systemic symptoms) or Complicated (systemic symptoms)? @ -Default Side effects of treatment? @ -No Exacerbation, Progression, or Severe Exacerbation? @ -No Poses a threat to life or bodily function? How? (Chest pain, [place], [place], pneumonia, PE, COPD, DKA, ARF, appy, cholecystitis, CVA, Diverticulitis, Homicidal, Suicidal, threat to staff... and all critical care pts) @ -Yes, threat to self - Lab Data Lab Results 06/25/24 Range/Units 00:40 Urine Opiates Screen Not Detected (NotDetected) Ur Oxycodone Screen Not Detected (NotDetected) Urine Methadone Screen Not Detected (NotDetected) Ur Barbiturates Screen Not Detected (NotDetected) U Tricyclic Antidepress Not Detected (NotDetected) Ur Phencyclidine Scrn Not Detected (NotDetected) Ur Amphetamines Screen Not Detected (NotDetected) U Methamphetamines Scrn Not Detected (NotDetected) U Benzodiazepines Scrn Not Detected (NotDetected) Urine Cocaine Screen Not Detected (NotDetected) U Marijuana (THC) Screen Not Detected (NotDetected) Disposition Clinical Impression: Depression, Suicidal ideation Disposition: ADMITTED IP TO THIS HOSP Condition: Stable Is patient prescribed a controlled substance at d/c from ED?: No Referrals: None,Stated [Primary Care Provider] - 1-2 days Time of Disposition: 01:51
[2024-06-25 01:18] LABS: Amphetamine Screen,Urine Not Detected (NotDetected); Barbiturate Screen,Urine Not Detected (NotDetected); Benzodiazepines Screen,Urine Not Detected (NotDetected); Cocaine Screen,Urine Not Detected (NotDetected); Methadone Screen, Urine Not Detected (NotDetected); Opiate Screen,Urine Not Detected (NotDetected); Oxycodone Screen, Urine Not Detected (NotDetected); Phencyclidine Screen,Urine Not Detected (NotDetected); Tricyclic Antidepressant,Urine Not Detected (NotDetected); Urn Cannabinoid Scrn Not Detected (NotDetected)
[2024-06-25 02:29] LABS: Appearance,Urine Cloudy (Clear); Bacteria,Urine Occasional /hpf; Bilirubin,Urine Negative (Negative); Blood,Urine Moderate (Negative); Budding Yeast,Urine Rare /hpf; Color,Urine Yellow; Glucose,Urine (UA) Negative (Negative); Ketones,Urine 1+ (Negative); Leukocyte Esterase,Urine Moderate (Negative); Mucus,Urine Many /hpf; Nitrite,Urine Negative (Negative); PH, Urine 5.5 (5.0-8.0); Protein,Urine Trace (Negative); RBC,Urine 2 /hpf (0-5); Specific Gravity,Urine 1.031 (1.001-1.035); Squamous Epithelial Cell,Urine 2 /hpf (0-4); WBC,Urine 12 /hpf (0-5)
[2024-06-25 03:08] LABS: Influenza A Not Detected (Not Detectd); Influenza B Not Detected (Not Detectd); RSV Not Detected (Not Detectd)
[2024-06-25] MEDS ORDERED: LORazepam 2 MG/ML INJ IM PRN (03:40)
[2024-06-25] MEDS ORDERED: ACETAMINOPHEN TAB 325 MG TAB PO PRN (03:40)
[2024-06-25] MEDS ORDERED: HALOPERIDOL LACTATE 5 MG/ML 1 ML VIAL IM PRN (03:40)
[2024-06-25] MEDS ORDERED: MAGNESIUM HYDROXIDE 2,400 MG/30 ML CUP PO PRN (03:40)
[2024-06-25] MEDS ORDERED: MAG HYDROX/AL HYDROX/SIMETH 355 ML BOTTLE PO PRN (03:40)
[2024-06-25] MEDS: LORazepam 1 MG TAB PO STA (04:06)
[2024-06-25] MEDS: IBUPROFEN 600 MG TAB PO PRN (04:58)
[2024-06-25] MEDS: haloperidoL 5 MG TAB PO PRN (05:00)
[2024-06-25 06:07] VITALS: RESP 16
[2024-06-25] MEDS: NICOTINE 14MG/24HR PATCH TRANSDERM SCH (09:27)
[2024-06-25] MEDS: ESCITALOPRAM 5 MG TAB PO SCH (13:17)
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
[2024-06-25] MEDS: traZODone HCL 50 MG TAB PO SCH (20:36)
--- NOTE | 2024-06-26 03:52 | P.CONS ---
History of Present Illness - Reason for Consult Consult date: 06/26/24 - History of Present Illness The patient is a 33-year-old female with a PMH of bipolar disorder and depression who had presented to the emergency room with complaints of depression and suicidal ideation. Patient reports that she has been dealing with multiple stressors over the past several days which prompted her to seek assistance. Patient was admitted to the mental health unit where she was seen and evaluated. She denied any chronic medical conditions and had no active complaints at the time of interview. She denied experiencing chest discomfort, shortness breath, fever, chills, cough, nausea, vomiting, abdominal pain, diarrhea. She does report smoking half pack of cigarettes per week and drinking alcohol 2-3 times weekly with 2-3 drinks each time. Denies any history of alcohol withdrawals or delirium tremens. Denied any additional illicit substance use. Review of systems: Pertinent positives and negatives as discussed in HPI, a complete review of systems was performed and all other systems are negative. Physical examination: General: non toxic, no distress, appears at stated age, normal weight Derm: no unusual rashes/lesions, no unusual ecchymoses, warm, dry Head: atraumatic, normocephalic, symmetric Eyes: EOMI, no lid lag, anicteric sclera ENT: Nose and ears atraumatic, no thrush, no pharyngeal erythema Neck: trachea midline, supple Mouth: no lip lesion, mucus membranes moist Cardiovascular: S1S2 reg, no murmur, no edema Lungs: CTA bilateral, no rhonchi, no rales , no accessory muscle use Abdominal: soft, nontender to palpation, no guarding Ext: no gross muscle atrophy, no contractures, Neuro: No gross focal neuro deficits noted Psych: Alert, oriented, appropriate affect Assessment: Alcohol and tobacco abuse Depression and suicidal ideation Imaging: None performed Data Review: Reviewed with urine toxicology and respiratory viral panel negative with UA nonspecific Plan: Strongly advised on the importance of cessation from alcohol and tobacco use Defer management of depression and suicidal ideation to the primary psychiatry service Thank you for allowing us to participate in the care of this patient. We will follow peripherally. Do not hesitate to contact us with questions. Someone can be reached from the [facility] hospitalist group at all hours of the day at [phone]. Past Medical History Past Medical History: No Reported History History of Any Multi-Drug Resistant Organisms: None Reported Year Discovered:: 2023 MDRO Source:: unknown which one- knee Past Surgical History: Section Past Anesthesia/Blood Transfusion Reactions: No Reported Reaction Past Psychological History: Bipolar, Depression Additional Psychological History / Comment(s): No meds x 15 years Smoking Status: Current some day smoker Past Alcohol Use History: Occasional Additional Past Alcohol Use History / Comment(s): Pt states she has wine 4-5 days per week but cannot state how much he drinks Past Drug Use History: None Reported - Past Family History Mother Family Medical History: Hypertension Additional Family Medical History / Comment(s): hx of preeclamsia for mom Medications and Allergies Home Medications Medication Instructions Recorded Confirmed Type No Known Home Medications 03/06/21 03/06/21 History Allergies Allergy/AdvReac Type Severity Reaction Status Date / Time No Known Allergies Allergy Verified 05/17/23 06:09 Physical Exam Vitals: Vital Signs Temp Pulse Resp BP Pulse Ox 06/25/24 05:21 97.6 F 85 16 134/86 98
[2024-06-26 10:30] LABS: Basophils # (A) 0.1 k/uL (0-0.2); Basophils % (A) 1 %; Eosinophils # (A) 0.1 k/uL (0-0.7); Eosinophils % (A) 1 %; HCT 42.3 % (34.0-46.0); HGB 14.1 gm/dL (11.4-16.0); Lymphocytes # (A) 1.4 k/uL (1.0-4.8); Lymphocytes % (A) 27 %; MCH 32.1 pg (25.0-35.0); MCHC 33.3 g/dL (31.0-37.0); MCV 96.3 fL (80.0-100.0); Mean Platelet Volume 7.2; Monocytes # (A) 0.3 k/uL (0-1.0); Monocytes % (A) 6 %; Neutrophils # (A) 3.3 k/uL (1.3-7.7); Neutrophils % (A) 63 %; Platelet Count 317 k/uL (150-450); RBC 4.39 m/uL (3.80-5.40); RDW 12.7 % (11.5-15.5); WBC 5.3 k/uL (3.8-10.6)
[2024-06-26 10:35] LABS: ALT 13 U/L (4-34); AST 19 U/L (14-36); African American GFR (CKD) >90 (>60 ml/min/1.73 sqM); Albumin 4.6 g/dL (3.5-5.0); Alkaline Phosphatase 52 U/L (38-126); Anion Gap 11 mmol/L; Bilirubin, Delta 0.2 mg/dL (0.0-0.2); Bilirubin,Unconjugated 0.6 mg/dL (0.0-1.1); Blood Urea Nitrogen 11 mg/dL (7-17); Calcium 10.1 mg/dL (8.4-10.2); Carbon Dioxide 24 mmol/L (22-30); Chloride 101 mmol/L (98-107); Glucose 102 mg/dL (74-99); Non-African American GFR(CKD) >90 (>60 ml/min/1.73 sqM); Potassium 4.6 mmol/L (3.5-5.1); Sodium 136 mmol/L (137-145); Total Bilirubin 0.8 mg/dL (0.2-1.3); Total Protein 7.5 g/dL (6.3-8.2)
[2024-06-26] MEDS: ESCITALOPRAM 5 MG TAB PO ONE (10:46)
--- NOTE | 2024-06-26 11:37 | P.PN ---
Progress Note - Text Progress Note Date: 06/26/24 Interval History: Patient was seen in group and was directable and agreeable to speak with commercial lines underwriter in the office. She states feeling better today which she attributes to both the medications and sleeping better as well. She mentions feeling slightly groggy this morning. Patient notably was goal oriented, talked a lot about her kids. She states she spoke to her ex and that things are well between them. Patient was encouraged to attend groups as she has mostly been isolative however she st ates knowing several of the staff members here which causes her to feel shame. At this time patient denies any suicidal or homicidal ideations, intent or plan. Patient denies any auditory, visual hallucinations and denies any paranoia or delusions. Patient denies any side effects from the medications and has been compliant with meds. Mental Status Exam: General Appearance: Patient appears to be stated age is alert, directable, and cooperative. She has fair grooming and hygiene Behavior: Patient is calmly seated without any agitated behavior. Patient less tearful Speech: Patient's speech is fluent and nonpressured. Mood/Affect: Mood is improving mildly, affect is congruent and blunted, more reactive. Suicidality/Homicidality: Patient denies having any suicidal or homicidal ideation intent or plan. Perceptions: Patient denies any visual hallucinations and denies any auditory hallucinations Though content/process: There is no evidence of any delusional thought content and thought process is linear and goal-directed. Memory and concentration: AOX3, grossly intact for the purposes of this session Judgment and insight: Improving mildly Assessment Major depressive disorder, recurrent Alcohol use disorder, mild Generalized anxiety disorder Plan: -Patient continues to meet criteria for inpatient psychiatric admission for symptom stabilization and safety. Patient has signed adult voluntary form and medication consent and was placed in patient's chart. -Medications: Increase Lexapro to 10 mg daily for depression/anxiety, continue trazodone 50 mg at bedtime for sleep -When necessary Ativan and Haldol for agitation/aggression. -Labs: Reviewed -SW on board for discharge planning. Encouraged the patient to participate in milieu. Anticipate discharge back home with family tomorrow
[2024-06-26 17:40] LABS: Chol/HDL Ratio 3.98 Ratio; LDL Cholesterol,Calculated 98.1 mg/dL (0.0-131.0); VLDL Calculation 18.74 mg/dL (5.00-40.00)
[2024-06-26] MEDS: LORazepam 1 MG TAB PO PRN (18:34)
[2024-06-27] MEDS: ESCITALOPRAM 10 MG TAB PO SCH (08:30)
[2024-06-27 08:33] VITALS: BP 99/65; PULSE 116; TEMP 97.1
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
== END 2024-06-27 12:15 | disposition home or self-care (01) | DRG 885 ==
LOC: EC 23:54 → 3MHU 06-25 03:27
PROVIDERS: ADMIT Psychiatry & Neurology Psychiatry; ATTEND Psychiatry & Neurology Psychiatry
DX: F33.9 Major depressive disorder, recurrent, unspecified (principal); R45.851 Suicidal ideations; F10.10 Alcohol abuse, uncomplicated; R45.1 Restlessness and agitation; G47.9 Sleep disorder, unspecified; F17.210 Nicotine dependence, cigarettes, uncomplicated; F41.1 Generalized anxiety disorder; Z71.41 Alcohol abuse counseling and surveillance of alcoholic; Z63.5 Disruption of family by separation and divorce; Z79.899 Other long term (current) drug therapy; Z91.51 Personal history of suicidal behavior; Z28.9 Immunization not carried out for unspecified reason; Z71.89 Other specified counseling
CPT/HCPCS: 80053; 80061; 80306; 81001; 82075; 82248; 83036; 84443; 85025; 87636; 99285